=== PATIENT | female | born 1995 | race Hispanic/Latino ===

== ENCOUNTER 2022-03-09 12:30 | Emergency (ER) | payer OTHER ==
[~2022-03-09] VITALS: Ht 149.9 cm; Wt 58.1 kg
[2022-03-09 13:27] VITALS: BP 126/74
[2022-03-09] MEDS ORDERED: NEOMYCIN/POLYMYXIN/HC OTIC SUSP 10ML BOTTLE AS SCH (13:30)
== END 2022-03-09 13:32 | disposition home or self-care (01) ==
LOC: EDH 12:30
DX: T16.2XXA Foreign body in left ear, initial encounter (principal); X58.XXXA Exposure to other specified factors, initial encounter; Y93.89 Activity, other specified; Y92.89 Other specified places as the place of occurrence of the external cause; Y99.8 Other external cause status